=== PATIENT | male | born 1960 | race Caucasian/White ===

== ENCOUNTER 2019-02-14 12:28 | Emergency (ER) | payer MEDICAID ==
[~2019-02-14] VITALS: Ht 180.3 cm; Wt 65.9 kg
[~2019-02-14 12:28] MED LIST: CELEXA; NORCO 325 MG-7.1 TAB PO
[2019-02-14 12:29] VITALS: BP 145/85; TEMP 98.7
[2019-02-14] MEDS ORDERED: CLEOCIN HCL300 MG PO (13:40)
[2019-02-14 13:49] VITALS: PULSE 109
== END 2019-02-14 13:49 | disposition home or self-care (01) ==
LOC: COL.ER 12:28
DX: S01.512A Laceration without foreign body of oral cavity, initial encounter (principal); Y04.8XXA Assault by other bodily force, initial encounter; Z23 Encounter for immunization

== ENCOUNTER 2019-02-24 09:06 | Emergency (ER) | payer MEDICAID ==
[~2019-02-24] VITALS: Ht 177.8 cm; Wt 68.2 kg
[~2019-02-24 09:06] MED LIST changes: +CLEOCIN HCL300 MG PO
[2019-02-24 09:35] LABS: HEMOGLOBIN 12.3 g/dl (13.5-18.0); MEAN CELL VOLUME 102 fl (80.0-100.0); MEAN CORPUSCULAR HEMOGLOBIN 34 pg (27.0-31.0); MEAN CORPUSCULAR HGB CONC 34 g/dl (33.0-37.0); MEAN PLATELET VOLUME 8.5 fl (7.4-10.4); PLATELET COUNT 356 K/mm3 (130-400); REDCELL DISTRIBUTION WIDTH-CV 12.8 % (11.5-14.5)
[2019-02-24 09:50] LABS: ALANINE AMINOTRANSFERASE 49 U/L (21-72); ALBUMIN 3.8 gm/dL (3.5-5.0); ALCOHOL(ethanol),MEDICAL 295 mg/dL; ALKALINE PHOSPHATASE 80 U/L (50-136); ANION GAP 14 mmol/L (7-16); AST,SGOT 75 U/L (15-37); BILIRUBIN,TOTAL 0.4 mg/dL (0.0-1.0); BLOOD UREA NITROGEN 5 mg/dL (9-20); CALCIUM 8.4 mg/dL (8.4-10.2); CARBON DIOXIDE 23 mmol/L (22-30); CHLORIDE 101 mmol/L (98-107); CREATININE, serum 0.38 (0.66-1.25); GLUCOSE 92 mg/dL (74-106); POTASSIUM 4.5 mmol/L (3.4-5.0); SODIUM 137 mmol/L (137-145); TOTAL PROTEIN 7.5 gm/dL (6.4-8.2)
[2019-02-24 10:01] LABS: HEMATOCRIT 36.6 % (42.0-52.0)
[2019-02-24 10:07] LABS: TROPONIN-I < 0.012 ng/mL (0.000-0.035)
[2019-02-24 10:40] LABS: BAND 18 % (0-10); LYMPHOCYTE 5 % (20.0-51.0); NEUTROPHILS 75 % (42.0-75.2)
[2019-02-24 10:41] LABS: PLATELET ESTIMATE NORMAL (NORMAL)
[2019-02-24 11:20] LABS: COLLECTION METHOD CLEAN CATCH
[2019-02-24 11:30] LABS: MUCOUS Present /lpf; PH 7 (5-8); SQUAMOUS EPITHELIAL None Seen /hpf; URINE APPEARANCE Clear; URINE BACTERIA None Seen /hpf; URINE BILIRUBIN Negative (NEGATIVE); URINE BLOOD Negative (NEGATIVE); URINE COLOR Yellow; URINE GLUCOSE Negative (NEGATIVE); URINE KETONE Negative (NEGATIVE); URINE LEUKOCYTE ESTERASE Negative (NEGATIVE); URINE NITRATE Negative (NEGATIVE); URINE PROTEIN(semi-quant) Negative (NEGATIVE); URINE RBC 0-2 /hpf; URINE UROBILINOGEN Negative (NEGATIVE)
[2019-02-24 11:50] VITALS: BP 150/89; PULSE 118; TEMP 98.7
[2019-02-24 11:50] LABS: TRICYCLIC ANTIDEPRESS URINE NEGATIVE
--- NOTE | 2019-02-24 14:13 | NUR ---
MACI perez responded to a elementary school social worker referral for the patient. The patient was being tranferred to [place] and the receiving physician was inquiring about patient's plan to return to [place]. MACI student attempted to meet with the patient; patient refused and stated he was tired. ENTERPRISE APPLICATIONS MANAGER student contacted the patient's insurance carrier; CHELSEA [facility]. ENTERPRISE APPLICATIONS MANAGER student confirmed that the patient has transportation services and they can provide transport after discharge; CHELSEA reports the nurse or elementary school social worker at the [facility] will need to call to set up transport upon discharge. MACI student informed the patient's nurse, Deepthi and gave her the phone # ; Deepthi will pass on the information to the receiving nurse. There are no additional concerns at this time.
== END 2019-02-24 11:50 | disposition short-term general hospital (02) ==
LOC: COL.ER 09:06
PROVIDERS: Emergency Medicine
DX: F10.129 Alcohol abuse with intoxication, unspecified (principal); J69.0 Pneumonitis due to inhalation of food and vomit; A41.9 Sepsis, unspecified organism; R09.02 Hypoxemia; R41.82 Altered mental status, unspecified; S00.81XD Abrasion of other part of head, subsequent encounter; Y90.8 Blood alcohol level of 240 mg/100 ml or more; X58.XXXD Exposure to other specified factors, subsequent encounter
CPT/HCPCS: J2543; J3411; J7030

== ENCOUNTER → 2019-03-18 | Outpatient (CLI) | payer MEDICAID | LOC: COL.RAD 11:04 | DX: M47.816 Spondylosis without myelopathy or radiculopathy, lumbar region (principal); M25.561 Pain in right knee; M25.562 Pain in left knee ==

== ENCOUNTER → 2019-03-30 | Outpatient (CLI) | payer MEDICAID ==
[2019-03-30 17:20] LABS: HEMATOCRIT 39.6 % (42.0-52.0); MEAN CELL VOLUME 98 fl (80.0-100.0); MEAN CORPUSCULAR HEMOGLOBIN 32 pg (27.0-31.0); MEAN CORPUSCULAR HGB CONC 33 g/dl (33.0-37.0); MEAN PLATELET VOLUME 9.7 fl (7.4-10.4); PLATELET COUNT 242 K/mm3 (130-400); RED BLOOD COUNT 4.04 M/mm3 (4.20-5.60); REDCELL DISTRIBUTION WIDTH-CV 14.6 % (11.5-14.5)
[2019-03-30 21:44] LABS: BAND 1 % (0-10); EOSINOPHIL 2 % (0-4); LYMPHOCYTE 33 % (20.0-51.0); NEUTROPHILS 55 % (42.0-75.2)
[2019-03-30 21:45] LABS: PLATELET ESTIMATE NORMAL (NORMAL)
== END ==
LOC: ZCOL.LAB 16:26
PROVIDERS: Family Medicine
DX: K92.1 Melena (principal)

== ENCOUNTER 2020-01-18 17:46 | Emergency (ER) | payer MEDICAID ==
[~2020-01-18] VITALS: Ht 177.8 cm; Wt 68.2 kg
[2020-01-18 17:49] VITALS: TEMP 98.2
[2020-01-18 18:12] LABS: BILIRUBIN,TOTAL 0.4 mg/dL (0.0-1.0); CALCIUM 8.7 mg/dL (8.4-10.2); CREATININE, serum 0.37 (0.66-1.25); POTASSIUM 4.4 mmol/L (3.4-5.0); TOTAL PROTEIN 7.6 gm/dL (6.4-8.2)
[2020-01-18 18:18] LABS: COLLECTION METHOD CLEAN CATCH
[2020-01-18 18:18] LABS: BASO # 0.2 (0.0-0.2); BASO % 1.4 % (0.0-2.0); EOS # 0.1 (0.0-0.7); GRAN # 7.7 (1.4-6.5); GRAN % 71.6 % (42.2-75.2); HEMATOCRIT 37.9 % (42.0-52.0); HEMOGLOBIN 12.7 g/dl (13.5-18.0); LYMPH # 1.8 (1.2-3.4); MEAN CELL VOLUME 106 fl (80.0-100.0); MEAN CORPUSCULAR HEMOGLOBIN 36 pg (27.0-31.0); MEAN CORPUSCULAR HGB CONC 34 g/dl (33.0-37.0); MONO # 0.9 (0.1-0.6); MONO % 8.6 % (1.7-9.3); PLATELET COUNT 288 K/mm3 (130-400); RED BLOOD COUNT 3.58 M/mm3 (4.20-5.60); REDCELL DISTRIBUTION WIDTH-CV 13.1 % (11.5-14.5)
[2020-01-18 18:21] VITALS: BP 126/88; PULSE 93
[2020-01-18 18:26] LABS: PH 7 (5-8); SQUAMOUS EPITHELIAL None Seen /hpf; URINE APPEARANCE Clear; URINE BACTERIA None Seen /hpf; URINE BILIRUBIN Negative (NEGATIVE); URINE BLOOD Negative (NEGATIVE); URINE COLOR Straw; URINE GLUCOSE Negative (NEGATIVE); URINE KETONE Negative (NEGATIVE); URINE LEUKOCYTE ESTERASE Negative (NEGATIVE); URINE NITRATE Negative (NEGATIVE); URINE PROTEIN(semi-quant) Negative (NEGATIVE); URINE RBC None Seen /hpf; URINE UROBILINOGEN Negative (NEGATIVE)
[2020-01-18] MEDS ORDERED: CELEXA40 MG PO (18:37)
[2020-01-18 19:29] LABS: TRICYCLIC ANTIDEPRESS URINE NEGATIVE
== END 2020-01-18 18:21 | disposition left against medical advice (07) ==
LOC: COL.ER 17:46
PROVIDERS: Family Medicine
DX: S33.9XXA Sprain of unspecified parts of lumbar spine and pelvis, initial encounter (principal); W19.XXXA Unspecified fall, initial encounter
CPT/HCPCS: J1885; J7030

== ENCOUNTER 2020-03-15 15:37 | Emergency (ER) | payer MEDICAID ==
[~2020-03-15] VITALS: Ht 177.8 cm; Wt 68.2 kg
[~2020-03-15 15:37] MED LIST changes: +CELEXA40 MG PO
[2020-03-15 15:40] VITALS: TEMP 98.2
[2020-03-15 16:04] LABS: BASO # 0.1 (0.0-0.2); BASO % 1.5 % (0.0-2.0); EOS # 0.1 (0.0-0.7); EOS % 1.7 % (0-4.0); GRAN # 3.7 (1.4-6.5); GRAN % 47.9 % (42.2-75.2); HEMATOCRIT 41.8 % (42.0-52.0); HEMOGLOBIN 14.2 g/dl (13.5-18.0); LYMPH # 3.3 (1.2-3.4); LYMPH % 42.7 % (20.0-51.0); MEAN CELL VOLUME 97 fl (80.0-100.0); MEAN CORPUSCULAR HEMOGLOBIN 33 pg (27.0-31.0); MEAN CORPUSCULAR HGB CONC 34 g/dl (33.0-37.0); MEAN PLATELET VOLUME 9.1 fl (7.4-10.4); MONO # 0.5 (0.1-0.6); MONO % 5.8 % (1.7-9.3); PLATELET COUNT 367 K/mm3 (130-400); RED BLOOD COUNT 4.29 M/mm3 (4.20-5.60); REDCELL DISTRIBUTION WIDTH-CV 13.1 % (11.5-14.5)
[2020-03-15 16:12] LABS: ALANINE AMINOTRANSFERASE 41 U/L (4-49); ALBUMIN 4.1 gm/dL (3.5-5.0); ALKALINE PHOSPHATASE 81 U/L (50-136); ANION GAP 13 mmol/L (7-16); AST,SGOT 67 U/L (15-37); BILIRUBIN,TOTAL 0.3 mg/dL (0.0-1.0); BLOOD UREA NITROGEN 5 mg/dL (9-20); CALCIUM 8.8 mg/dL (8.4-10.2); CARBON DIOXIDE 24 mmol/L (22-30); CHLORIDE 106 mmol/L (98-107); CREATININE, serum 0.63 (0.66-1.25); GLUCOSE 102 mg/dL (74-106); SODIUM 143 mmol/L (137-145); TOTAL PROTEIN 7.9 gm/dL (6.4-8.2)
[2020-03-15 16:21] LABS: ALCOHOL(ethanol),MEDICAL 326 mg/dL
[2020-03-15 16:25] LABS: TROPONIN-I < 0.012 ng/mL (0.000-0.035)
[2020-03-15 17:32] VITALS: BP 124/95
[2020-03-15] MEDS ORDERED: ATARAX 25MG25 MG/TAB PO (19:17)
[2020-03-15 19:35] VITALS: PULSE 111
== END 2020-03-15 19:35 | disposition home or self-care (01) ==
LOC: COL.ER 15:37
PROVIDERS: Emergency Medicine
DX: F10.229 Alcohol dependence with intoxication, unspecified (principal); S00.81XA Abrasion of other part of head, initial encounter; S60.512A Abrasion of left hand, initial encounter; S80.212A Abrasion, left knee, initial encounter; S80.211A Abrasion, right knee, initial encounter; F41.9 Anxiety disorder, unspecified; F17.210 Nicotine dependence, cigarettes, uncomplicated; W19.XXXA Unspecified fall, initial encounter
CPT/HCPCS: J7030

== ENCOUNTER 2020-07-21 05:07 | Inpatient (IN) | payer MEDICAID ==
[~2020-07-21] VITALS: Ht 177.8 cm; Wt 61.3 kg
[~2020-07-21 05:07] MED LIST changes: +ATARAX 25MG25 MG/TAB PO
[2020-07-21 05:35] LABS: BASO # 0.1 (0.0-0.2); BASO % 1.3 % (0.0-2.0); EOS % 0.2 % (0-4.0); GRAN # 4.2 (1.4-6.5); GRAN % 67.7 % (42.2-75.2); HEMATOCRIT 38.3 % (42.0-52.0); HEMOGLOBIN 13.3 g/dl (13.5-18.0); LYMPH # 0.9 (1.2-3.4); LYMPH % 14.4 % (20.0-51.0); MEAN CELL VOLUME 97 fl (80.0-100.0); MEAN CORPUSCULAR HEMOGLOBIN 34 pg (27.0-31.0); MEAN CORPUSCULAR HGB CONC 35 g/dl (33.0-37.0); MEAN PLATELET VOLUME 9.3 fl (7.4-10.4); MONO % 15.7 % (1.7-9.3); PLATELET COUNT 154 K/mm3 (130-400); RED BLOOD COUNT 3.95 M/mm3 (4.20-5.60); REDCELL DISTRIBUTION WIDTH-CV 14.5 % (11.5-14.5)
[2020-07-21 05:49] LABS: ALANINE AMINOTRANSFERASE 78 U/L (4-49); ALBUMIN 4.8 gm/dL (3.5-5.0); ALCOHOL(ethanol),MEDICAL 19 mg/dL; ALKALINE PHOSPHATASE 103 U/L (50-136); ANION GAP 18 mmol/L (7-16); AST,SGOT 194 U/L (15-37); BLOOD UREA NITROGEN 4 mg/dL (9-20); CALCIUM 9.6 mg/dL (8.4-10.2); CARBON DIOXIDE 19 mmol/L (22-30); CHLORIDE 100 mmol/L (98-107); CREATINE KINASE 170 U/L (55-170); CREATININE, serum 0.47 (0.66-1.25); GLUCOSE 80 mg/dL (74-106); LACTATE DEHYDROGENASE 850 U/L (313-618); LIPASE 1072 U/L (23-300); POTASSIUM 4.1 mmol/L (3.4-5.0); SODIUM 137 mmol/L (137-145); TOTAL PROTEIN 8.8 gm/dL (6.4-8.2)
[2020-07-21 05:55] LABS: C-REACTIVE PROTEIN < 0.5 mg/dL (0.0-0.9)
[2020-07-21 06:01] LABS: TROPONIN-I < 0.012 ng/mL (0.000-0.035)
[2020-07-21 06:21] LABS: ERYTHROCYTE SEDIMENTATION RATE 22 mm/hr (0-30)
[2020-07-21 09:37] LABS: COLLECTION METHOD CLEAN CATCH
--- NOTE | 2020-07-21 09:41 | NUR ---
SW consulted for patient safety concern. Sw met with patient about care. Patient reports that he has been having trouble walking for the last few weeks. Patient reports that he resides by himself locally. Patient indicated that he can not care for himself a he does not know what is wrong and why he cannot walk. Patient shares that he is on Citalopram 40 MGs at home. Client reports that he has been drinking and taking the medications with the alcohol at times. Patient reports that is on Social Security for his income. Patient reports that he has family in [facility] and a brother Alberto Downs who reach lift truck driver be reached at . Must press (1) to confirm that you are not a darkroom worker. Patient reports concerns with bowls. Patient is not safe to return home. Patient concern with fixed income and is slightly agitated. Will continue to follow care for supports. It is possible that the patient is etoh. Will monitor to offer resources and supports. Awaiting lab results.
[2020-07-21 09:54] LABS: PH 7 (5-8); SQUAMOUS EPITHELIAL None Seen /hpf; URINE APPEARANCE Clear; URINE BACTERIA None Seen /hpf; URINE BILIRUBIN Negative (NEGATIVE); URINE BLOOD Negative (NEGATIVE); URINE COLOR Yellow; URINE GLUCOSE Negative (NEGATIVE); URINE KETONE 1+ (NEGATIVE); URINE LEUKOCYTE ESTERASE Negative (NEGATIVE); URINE NITRATE Negative (NEGATIVE); URINE PROTEIN(semi-quant) Negative (NEGATIVE); URINE RBC 0-2 /hpf; URINE UROBILINOGEN >=4.0 mg/dL (NEGATIVE); URINE WBC 0-2 /hpf
[2020-07-21] MEDS ORDERED: PROVENTIL0.09 MG/A1 IH (10:55)
[2020-07-21] MEDS ORDERED: RT ADVAIR 228 DISKUS IH (10:56)
[2020-07-21] MEDS ORDERED: CELEXA 20MG20 MG/TAB PO (10:57)
--- NOTE | 2020-07-21 11:26 | NUR ---
PT ARRIVED TO FLOOR, IRRITABLE, TREMORS VISIBLE, AOX3, WEARING BRIEF BUT INC DUE TO URGENCY. BED ALARM ON IN ROOM, EDUCATED HIM GAS LINE SERVICER LIGHT.
[2020-07-21 11:27] VITALS: BP 160/94; PULSE 80; TEMP 98.3
--- NOTE | 2020-07-21 11:52 | NUR ---
PHARMACY CALLED FOR MED REC
[2020-07-21 12:57] LABS: PROTHROMBIN TIME 11.6 SECONDS (9.7-12.8)
[2020-07-21 13:00] LABS: PARTIAL THROMBOPLASTIN TIME 33.8 SECONDS (26.0-37.0)
[2020-07-21 14:42] VITALS: BP 149/89; PULSE 91; TEMP 98.4
[2020-07-21 16:25] VITALS: BP 158/94; PULSE 87; TEMP 98.1
--- NOTE | 2020-07-21 17:04 | NUR ---
PT AOX4, IN BED, IMPULSIVE WHEN NEEDING TO URINATE, BED ALARM SET, PT SLEEPING IN ROOM, SCORING 5-6 ON CWAW SCALE, NO OTHER NEEDS.
[2020-07-21 18:09] VITALS: BP 150/81; PULSE 89; TEMP 98.5
[2020-07-21 20:34] VITALS: BP 155/80; PULSE 89; TEMP 98.2
--- NOTE | 2020-07-21 23:32 | NUR ---
PATIENT WAS RECEIVED FAIR IN BED ,DUE MEDS GIVEN,ASSESSMENT DONE,CIWA SCORE WAS 4 GAVE ARTIVAN 0.5MG.DENIES PAIN NO NEEDS AT THIS TIME
[2020-07-21 23:59] VITALS: BP 142/80; PULSE 91; TEMP 98.4
[2020-07-22] VITALS (365 sets, daily range): BP systolic 102–171; BP diastolic 55–110; PULSE 78–143; TEMP 97.2–99; O2SAT 57–100
[2020-07-22 00:32] LABS: TRICYCLIC ANTIDEPRESS URINE NEGATIVE
--- NOTE | 2020-07-22 02:40 | NUR ---
PATIENT REPORTED OF BACK PAINS NIGHT HOSPITALIST INFORMED,ORDERED MOTRIN PO,SAME GIVEN.
--- NOTE | 2020-07-22 06:03 | NUR ---
PATIENT IS ON CIWA PROTOCOL,AT NIGHT THE SCORE RANGED FROM 4-9.MEDS GIVEN PER MAR.NO CONCERNS AT THIS TIME.
[2020-07-22 08:06] LABS: HEMATOCRIT 40.4 % (42.0-52.0); HEMOGLOBIN 13.9 g/dl (13.5-18.0); MEAN CELL VOLUME 96 fl (80.0-100.0); MEAN CORPUSCULAR HEMOGLOBIN 33 pg (27.0-31.0); MEAN CORPUSCULAR HGB CONC 34 g/dl (33.0-37.0); PLATELET COUNT 143 K/mm3 (130-400); RED BLOOD COUNT 4.19 M/mm3 (4.20-5.60); REDCELL DISTRIBUTION WIDTH-CV 14.4 % (11.5-14.5)
[2020-07-22 08:08] LABS: ALBUMIN 4.6 gm/dL (3.5-5.0); BILIRUBIN,TOTAL 1.5 mg/dL (0.0-1.0); CALCIUM 9.9 mg/dL (8.4-10.2); CREATININE, serum 0.52 (0.66-1.25); POTASSIUM 3.7 mmol/L (3.4-5.0); TOTAL PROTEIN 8.5 gm/dL (6.4-8.2)
--- NOTE | 2020-07-22 10:31 | NUR ---
PT VERY AGITATED, PULLING TELE OFF, TRYING TO GET OUT OF BED REPEATEDLY, TACHYCARDIC, MULITPLE CALLS FROM TELE ABOUT INC HR, DR. BUCK AWARE, BP ELEVATED GAVE HYDRALAZINE EARLY AFTER ASKING PHYSICIAN, VALIUM ADDED ON TO ORDER AND GIVEN. EXTRA 2MG ATIVAN ORDERED ON TOP OF Q2H DOSING. SITTER ORDER PLACED, PT HALLUCINATING IN ROOM, THINKING CLOSET IS AN EXTRA BEDROOM AND THAT WE ARE MOVING FURNITURE AROUND TO FRUSTRATE HIM. PT NOT CALMING WITH ATIVAN.
--- NOTE | 2020-07-22 11:15 | NUR ---
ATTEMPTING TO PUT TELE ON PT MULTIPLE TIMES, PT GETTING AGITATED AND GRABBING STAFF.
--- NOTE | 2020-07-22 11:23 | NUR ---
PT NOW THREATENING TO PUNCH STAFF WHEN ATTEMPTING TO PLACE TELEMETRY. PHYSICIANS AWARE, TRYING TO SLIDE OUT OF BED CONSTANTLY DESPITE MEDICATIONS GIVEN.
--- NOTE | 2020-07-22 15:10 | NUR ---
REPORT GIVEN TO TOM IN ICU, PT TAKEN DOWN WITH CHART AND OTHER BELONGINGS.
[2020-07-23] VITALS (801 sets, daily range): BP systolic 89–136; BP diastolic 71–106; PULSE 77–120; TEMP 97.7–99.2; O2SAT 63–100
[2020-07-23 06:00] LABS: BASO % 0.5 % (0.0-2.0); EOS % 0.4 % (0-4.0); GRAN # 5.7 (1.4-6.5); GRAN % 74.9 % (42.2-75.2); HEMATOCRIT 39.9 % (42.0-52.0); HEMOGLOBIN 13.3 g/dl (13.5-18.0); MEAN CELL VOLUME 100 fl (80.0-100.0); MEAN CORPUSCULAR HEMOGLOBIN 33 pg (27.0-31.0); MEAN CORPUSCULAR HGB CONC 33 g/dl (33.0-37.0); MEAN PLATELET VOLUME 10.6 fl (7.4-10.4); MONO # 0.8 (0.1-0.6); MONO % 10.2 % (1.7-9.3); PLATELET COUNT 120 K/mm3 (130-400); RED BLOOD COUNT 4.01 M/mm3 (4.20-5.60); REDCELL DISTRIBUTION WIDTH-CV 14.6 % (11.5-14.5)
[2020-07-23 06:10] LABS: ALBUMIN 4.2 gm/dL (3.5-5.0); BILIRUBIN,TOTAL 1.6 mg/dL (0.0-1.0); CALCIUM 9.6 mg/dL (8.4-10.2); CREATININE, serum 0.6 (0.66-1.25); MAGNESIUM 2.3 mg/dL (1.6-2.3); POTASSIUM 3.3 mmol/L (3.4-5.0); TOTAL PROTEIN 7.8 gm/dL (6.4-8.2)
--- NOTE | 2020-07-23 07:45 | NUR ---
Report received from Alejandro BERG
--- NOTE | 2020-07-23 08:00 | NUR ---
Nicotine patch removed from left shoulder, and new patch replaced on right shoulder. Date and this nurse initials on it.
--- NOTE | 2020-07-23 11:00 | NUR ---
Pt having increased agitation. Yelling and cussing at nursing staff. Pt is in need of 1:1 care for this time being. Request a sitter. Pt is more quiet when this nurse is sitting behind him, out of sight although due to sitting on the left side of the bed, bed alarm is not an option. Pt also, repeatedly, attempting to get out of bed. Tremors noted to upper and lower extremities with movements. Pt is observed holding beverages (juice/ water) that has been provided to him although has been repeatedly dropping the cups in bed. After verbal outburst that lasted approximately 15 minutes, pt would only demonstrated aggitation when nursing staff continued to encourage pt to stay in bed, standing at bedside. Pt repeatedly makes comments consistent with hallucinations as well as noted to be reaching for something at the end of the bed. Pt also has been saying "get out of my house", "get my a drink", "I want a beer".
--- NOTE | 2020-07-23 13:05 | NUR ---
Brother Yves called with concern noted that pt was in the ICU. After verification brother was only notified that pt was in the unit for extra care and medication to assist in the detox process.
--- NOTE | 2020-07-23 19:14 | NUR ---
Report provided to Natasha BERG.
--- NOTE | 2020-07-23 20:29 | NUR ---
PT RESTING INBED DENIES PAIN AT THIS TIME. VSS, AND DENIES DOA. REMAINS A/O X 2. PT REMAINS ON CIWA PROTOCOL AND SZ PRECAUTIONS. PT REMAINS ON PRECEDEX GTT FOR SEVERE ANXIETY. WILL CONTINUE TO MONITOR PT STATUS AND UPDATE PROVIDERS NEEDED.
[2020-07-24] VITALS (927 sets, daily range): BP systolic 112–142; BP diastolic 82–101; PULSE 89–113; TEMP 98.4–99.2; O2SAT 73–100
[2020-07-24 06:07] LABS: BASO # 0.1 (0.0-0.2); BASO % 0.5 % (0.0-2.0); EOS % 0.4 % (0-4.0); GRAN # 7.1 (1.4-6.5); GRAN % 76.8 % (42.2-75.2); HEMATOCRIT 37.1 % (42.0-52.0); HEMOGLOBIN 12.7 g/dl (13.5-18.0); LYMPH # 0.9 (1.2-3.4); LYMPH % 9.5 % (20.0-51.0); MEAN CELL VOLUME 98 fl (80.0-100.0); MEAN CORPUSCULAR HEMOGLOBIN 34 pg (27.0-31.0); MEAN CORPUSCULAR HGB CONC 34 g/dl (33.0-37.0); MEAN PLATELET VOLUME 10.9 fl (7.4-10.4); MONO # 1.1 (0.1-0.6); MONO % 12.2 % (1.7-9.3); PLATELET COUNT 105 K/mm3 (130-400); RED BLOOD COUNT 3.78 M/mm3 (4.20-5.60); REDCELL DISTRIBUTION WIDTH-CV 14.6 % (11.5-14.5)
[2020-07-24 06:19] LABS: INR 1.2 (0.8-3.0); PROTHROMBIN TIME 13.9 SECONDS (9.7-12.8)
[2020-07-24 06:21] LABS: ALBUMIN 3.9 gm/dL (3.5-5.0); BILIRUBIN,TOTAL 1.6 mg/dL (0.0-1.0); CALCIUM 9.1 mg/dL (8.4-10.2); CREATININE, serum 0.57 (0.66-1.25); MAGNESIUM 2.2 mg/dL (1.6-2.3); TOTAL PROTEIN 7.6 gm/dL (6.4-8.2)
--- NOTE | 2020-07-24 10:38 | NUR ---
ANU contacted the number on file for the patient's brother. The patient's mother, Elen, answered the phone. Elen reports that this is her and her 's (the patient's father's phone number). Elen confirms that the patient is not marriend and does not have any children. The patient's next of kin is his parents: Elen and Alberto Brown (ph#[phone], press 8). ANU informed Elen of this. ANU to continue to follow.
[2020-07-25] VITALS (825 sets, daily range): BP systolic 113–144; BP diastolic 67–102; PULSE 80–135; TEMP 98–98.3; O2SAT 89–100
--- NOTE | 2020-07-25 01:23 | NUR ---
Patient attempting to get out of bed; becoming verbally aggressive and yelling "I need my fucking beer!" Attempting to kick staff when attempting to assist legs back into bed. Attempted to re-orient patient which was not effective. Hospitalist called and received an additional order order of Ativan and will administer haldol.
--- NOTE | 2020-07-25 02:26 | NUR ---
Despite Ativan and Haldol patient continues to attempt to get out of bed continuously; swings legs over the side rails and attempts to push off, although too weak to push himself up out of the bed. Staff unable to leave patient's bedside at this time for his safety. HR up to the 140's in sinus tach. Precedex will be re-initiate at this time.
[2020-07-25 02:52] LABS: CLOSTRIDIUM DIFF A/B NEG; CLOSTRIDIUM DIFF A/B INTERP No C.diff present
--- NOTE | 2020-07-25 05:27 | NUR ---
Resting quietly in bed; tolerating precedex well.
[2020-07-25 05:48] LABS: HEMOGLOBIN 12.2 g/dl (13.5-18.0); MEAN CELL VOLUME 100 fl (80.0-100.0); MEAN CORPUSCULAR HEMOGLOBIN 34 pg (27.0-31.0); MEAN CORPUSCULAR HGB CONC 34 g/dl (33.0-37.0); MEAN PLATELET VOLUME 10.9 fl (7.4-10.4); PLATELET COUNT 125 K/mm3 (130-400); RED BLOOD COUNT 3.58 M/mm3 (4.20-5.60); REDCELL DISTRIBUTION WIDTH-CV 14.6 % (11.5-14.5)
[2020-07-25 05:53] LABS: HEMATOCRIT 35.8 % (42.0-52.0)
[2020-07-25 06:01] LABS: CALCIUM 8.9 mg/dL (8.4-10.2); CREATININE, serum 0.45 (0.66-1.25); MAGNESIUM 2.2 mg/dL (1.6-2.3)
[2020-07-25 06:04] LABS: POTASSIUM 2.9 mmol/L (3.4-5.0)
[2020-07-25 06:30] LABS: BAND 2 % (0-10); BASOPHIL 1 % (0-2); LYMPHOCYTE 7 % (20.0-51.0); NEUTROPHILS 71 % (42.0-75.2)
[2020-07-25 06:31] LABS: PLATELET ESTIMATE DECREASED (NORMAL)
--- NOTE | 2020-07-25 09:46 | NUR ---
Assessment completed, drowsy/ lethargic at this time, weening down his Precedex gtt, vital signs are stable, does not appear to be in any acute pain/discomfort/distress, he arouses to light touch but falls back asleep quickly, heart RRR/distal pulses are palapble, lungs CTA/ diminished bases, no resp.difficulty and on room air, bed alarm is set and we are hoping to get transfeered out of ICU today
--- NOTE | 2020-07-25 10:45 | NUR ---
Patient is beggining to get more agitated
--- NOTE | 2020-07-25 12:14 | NUR ---
Assessment completed, patient is much more agitated sence we had been trying to ween him down on his Precedex gtt/ he was getting combative and extremely agitated, he bace hypertensive and tachycardic at that time as well, I haave titrated his Precedex gtt back up to 0.4 mcg/kg/hr and gave him Ativan and Haldol IV, he is still worked up but is starting to calm down again and is currently no longer combative/ he beleives he is in his hotel room does not think hes in a hospital, will discuss care with and will continue to monitor closely
--- NOTE | 2020-07-25 16:39 | NUR ---
patient now to the point of getting combative, titrating Precedex back up notified physician, 1:1 in the room with his currently
--- NOTE | 2020-07-25 16:48 | NUR ---
Patient had a fall at 1600, he had been sleeping prior to this, Unit superviosr and charge nurse both present on floor at time of the fall, bed alarm was set but did not go off, vital signs stable, patient had slid off bed to his butt with no obvious injuries, also in the ICU at this time and is notified, no new orders or tests ordered, patient helped back into bed after using BSC and bed alarm set and checked for proper function
--- NOTE | 2020-07-25 19:15 | NUR ---
Report given to MORENA Gonzalez
--- NOTE | 2020-07-25 20:00 | NUR ---
Patient alert and mildly restless; patient turned partially sideways in bed and tangled in sheets. Stated " I need to get out of this bed". Reminded patient that he is very weak and he can get up to use the bathroom but at this time he is not strong enough to be walking any distances. Assisted with repositioning and bed bath. Shower cap provided and patient stated "that feels nice" and was able to rest after the bedbath.
[2020-07-26] VITALS (458 sets, daily range): BP systolic 116–153; BP diastolic 72–108; PULSE 83–125; TEMP 98.3–98.7; O2SAT 88–98
--- NOTE | 2020-07-26 00:57 | NUR ---
Patient has refused all offers for fluids. Has only had enought to swallow pills. Has had no output yet this shift. This nurse has asked patient mulitple times if he needs to urinate. Patient states "not yet". Attempted to hold the urinal in place to assist but did not void. Patient is not on fluids and mucous membranes are dry. Hospitalist notified and will initiate fluids.
[2020-07-26 05:24] LABS: MEAN CELL VOLUME 102 fl (80.0-100.0); MEAN CORPUSCULAR HEMOGLOBIN 34 pg (27.0-31.0); MEAN CORPUSCULAR HGB CONC 33 g/dl (33.0-37.0); MEAN PLATELET VOLUME 10.1 fl (7.4-10.4); PLATELET COUNT 172 K/mm3 (130-400); RED BLOOD COUNT 3.27 M/mm3 (4.20-5.60); REDCELL DISTRIBUTION WIDTH-CV 14.5 % (11.5-14.5)
[2020-07-26 05:25] LABS: HEMATOCRIT 33.2 % (42.0-52.0)
[2020-07-26 05:38] LABS: CREATININE, serum 0.47 (0.66-1.25); POTASSIUM 3.7 mmol/L (3.4-5.0)
[2020-07-26 06:04] LABS: BAND 2 % (0-10); EOSINOPHIL 1 % (0-4); HYPOCHROMIA 2+; LYMPHOCYTE 4 % (20.0-51.0); NEUTROPHILS 85 % (42.0-75.2); PLATELET ESTIMATE NORMAL (NORMAL)
--- NOTE | 2020-07-26 19:27 | NUR ---
Report given to MORENA Valencia.
--- NOTE | 2020-07-26 20:00 | NUR ---
Assessment complete. Pt is alert and responsive to voice but is confused. Breathing is even and unlabored on room air. RA IV and LW IV are both free of complications. [place] catheter to DD is free of complications. Pt is resting quietly in the bed at this time and he denies further needs. Call light within reach.
[2020-07-27] VITALS (497 sets, daily range): BP systolic 119–160; BP diastolic 77–113; PULSE 85–127; TEMP 98–98.6; O2SAT 76–100
--- NOTE | 2020-07-27 09:40 | NUR ---
Initial visit; Patient appears able to hear though doesn't respond. Farm Technician offered God's blessings.
--- NOTE | 2020-07-27 19:00 | NUR ---
PATIENT WAS RECEIVED FAIR DUE MEDS GIVEN,ASSESSMENT DONE.PATIENT HAS POOR ORAL INTAKE.NO NEEDS AT THIS TIME.
[2020-07-28] VITALS (10 sets, daily range): BP systolic 119–197; BP diastolic 8–112; PULSE 85–116; TEMP 97.4–98.8
--- NOTE | 2020-07-28 05:53 | NUR ---
PATIENT IS CALM NOW HAS RECEIVED CIWA MEDS PER AUG.AT NIGHT HE WAS SCORING 10 WHEN AWAKE AND 4 WHEN ASLEEP.PATIENT HAS REDUCED ORAL INTAKE.DENIES PAIN.NO OTHER NEEDS AT THIS TIME.
[2020-07-28 07:11] LABS: HEMOGLOBIN 10.8 g/dl (13.5-18.0); MEAN CELL VOLUME 102 fl (80.0-100.0); MEAN CORPUSCULAR HEMOGLOBIN 34 pg (27.0-31.0); MEAN CORPUSCULAR HGB CONC 33 g/dl (33.0-37.0); MEAN PLATELET VOLUME 10.5 fl (7.4-10.4); REDCELL DISTRIBUTION WIDTH-CV 14.5 % (11.5-14.5)
[2020-07-28 07:22] LABS: ALBUMIN 3.5 gm/dL (3.5-5.0); BILIRUBIN,TOTAL 1.1 mg/dL (0.0-1.0); CALCIUM 9.4 mg/dL (8.4-10.2); CREATININE, serum 0.44 (0.66-1.25); POTASSIUM 3.2 mmol/L (3.4-5.0); TOTAL PROTEIN 7.1 gm/dL (6.4-8.2)
[2020-07-28 07:29] LABS: HEMATOCRIT 32.5 % (42.0-52.0); PLATELET COUNT 360 K/mm3 (130-400)
--- NOTE | 2020-07-28 07:33 | NUR ---
PT IS AGITATED, MOVED PT WITH X2 ASSISTANCE TO CHAIR. PT IS VERY CONCERNED ABOUT HIS MAIL. DISCUSSED THAT WE WOULD TALK TO SW ABOUT GETTING IN CONTACT WITH WARREN WHO IS THE PERSON HE GAVE HIS MAIL BERKOWITZ TO. PT IS ALSO REQUESTING A BEER, AND TO "GET THE FUCK OUT OF THIS PLACE." PT HAS PULLED HIS TELEMETRY LEADS OFF, WILL CONTINUE TO ATTEMPT TO GET THEM BACK ON. NO FURTHER CONCERNS AT THIS TIME.
[2020-07-28 09:03] LABS: BAND 5 % (0-10); LYMPHOCYTE 13 % (20.0-51.0); NEUTROPHILS 64 % (42.0-75.2); PLATELET ESTIMATE NORMAL (NORMAL)
--- NOTE | 2020-07-28 10:37 | NUR ---
PT IS LAYING IN BED AT THIS TIME. C/O GENERALIZED BODY ACHES. NO OTHER CONCERNS. TALKED WITH PATIENT'S MOTHER AND FATHER WHO ARE VERY SUPPORTIVE. NO FURTHER CONCERNS.
--- NOTE | 2020-07-28 16:45 | NUR ---
Automatic Line Set Up Mechanic gave referrals to [facility], [facility], and [facility] as placement is currently recommended for patient.
--- NOTE | 2020-07-28 17:00 | NUR ---
Lydia at [facility] advised they did not feel they could take patient at this time but would be willing to reevaluate once patient is more stable.
--- NOTE | 2020-07-28 20:00 | NUR ---
Patient is sleeping calmly in bed at this time. He shows no signs of tremors, is afebrile and HR is in the 90's. Lungs are clear, HR is regular rhythm and no edema is present. Patient does not appear to be in pain. When this RN wakes patient up, he becomes alert/drowsy but is only oriented to self and place. Bed alarm on, call light in reach.
[2020-07-29] VITALS (12 sets, daily range): BP systolic 112–158; BP diastolic 74–96; PULSE 59–126; TEMP 97.5–98.8
--- NOTE | 2020-07-29 02:04 | NUR ---
PATIENT SCORES 6 ON CIWA SCALE AT THIS TIME; 1 MG ATIVAN ADMINISTERED PER PROTOCOL.
[2020-07-29 09:01] LABS: BASO # 0.1 (0.0-0.2); BASO % 1.2 % (0.0-2.0); EOS # 0.1 (0.0-0.7); EOS % 1.3 % (0-4.0); GRAN # 5.7 (1.4-6.5); GRAN % 64.3 % (42.2-75.2); HEMOGLOBIN 12.1 g/dl (13.5-18.0); LYMPH # 1.4 (1.2-3.4); LYMPH % 15.2 % (20.0-51.0); MEAN CELL VOLUME 101 fl (80.0-100.0); MEAN CORPUSCULAR HEMOGLOBIN 33 pg (27.0-31.0); MEAN CORPUSCULAR HGB CONC 33 g/dl (33.0-37.0); MEAN PLATELET VOLUME 10.4 fl (7.4-10.4); MONO # 1.5 (0.1-0.6); MONO % 16.8 % (1.7-9.3); RED BLOOD COUNT 3.65 M/mm3 (4.20-5.60); REDCELL DISTRIBUTION WIDTH-CV 14.2 % (11.5-14.5)
[2020-07-29 09:07] LABS: HEMATOCRIT 36.8 % (42.0-52.0); PLATELET COUNT 499 K/mm3 (130-400)
[2020-07-29 09:28] LABS: ALBUMIN 3.9 gm/dL (3.5-5.0); CALCIUM 9.9 mg/dL (8.4-10.2); CREATININE, serum 0.46 (0.66-1.25); POTASSIUM 3.9 mmol/L (3.4-5.0); TOTAL PROTEIN 7.9 gm/dL (6.4-8.2)
--- NOTE | 2020-07-29 10:23 | NUR ---
Pt awake and alert upon entry to room, talkative and appropriate. No C/O pain at this time. Shift assessments complete, left Pt call light inreach, bed in lowest position, alarm on.
--- NOTE | 2020-07-29 19:30 | NUR ---
PT IS LAYING IN BED AT THIS TIME. COMPLIANT AND CORDIAL, DENIES ANY NEED AT THIS TIME. ASSESSMENT COMPLETED. NO OTHER CONCERNS AT THIS TIME.
[2020-07-30] VITALS (12 sets, daily range): BP systolic 98–133; BP diastolic 75–98; PULSE 83–116; TEMP 97.4–98.4
[2020-07-30 07:01] LABS: HEMOGLOBIN 11.6 g/dl (13.5-18.0); MEAN CELL VOLUME 102 fl (80.0-100.0); MEAN CORPUSCULAR HEMOGLOBIN 34 pg (27.0-31.0); MEAN CORPUSCULAR HGB CONC 33 g/dl (33.0-37.0); MEAN PLATELET VOLUME 10.3 fl (7.4-10.4); PLATELET COUNT 556 K/mm3 (130-400); RED BLOOD COUNT 3.45 M/mm3 (4.20-5.60); REDCELL DISTRIBUTION WIDTH-CV 14.5 % (11.5-14.5)
[2020-07-30 07:06] LABS: HEMATOCRIT 35.2 % (42.0-52.0)
[2020-07-30 07:08] LABS: CALCIUM 9.7 mg/dL (8.4-10.2); CREATININE, serum 0.47 (0.66-1.25); POTASSIUM 4.1 mmol/L (3.4-5.0)
[2020-07-30 07:34] LABS: BAND 1 % (0-10); BASOPHIL 1 % (0-2); EOSINOPHIL 2 % (0-4); LYMPHOCYTE 16 % (20.0-51.0); METAMYELOCYTE 1 % (0-0); NEUTROPHILS 58 % (42.0-75.2); PLATELET ESTIMATE INCREASED (NORMAL)
--- NOTE | 2020-07-30 08:02 | NUR ---
PT REFUSED TX
--- NOTE | 2020-07-30 08:51 | NUR ---
Pt awake and alert this morning upon entry, assisted to restroom. No C/O pain at this time. Shift assessment complete, left Pt call light in reach, sitting in recliner, alarm on.
--- NOTE | 2020-07-30 10:27 | NUR ---
SW faxed record updates to [facility] per their request (F# [id number]). IPR will review Friday. WSB will review information when patient is more stable.
--- NOTE | 2020-07-30 20:59 | NUR ---
[place] chair alarm beelping, when this RN run into Patient's room, noticed patient was sitting up on the floor by the chair at 20:39 pm. Patient states he was trying to turn off room light and he fell. Patient alert and oriented x3. Denies hurt his head. No bleeding, or skin open areas noted anywhere at this time. Denies paint or discomfort. Assisted patient to the bed. Called housekeeping assistant and reported this incident. Checked VS. VS stable. Educated patient regarding using of call light to call for help. Patient verbalized understanding. Scheduled meds given per AUG. Turned off room light per patient request. Patient laying in bed and resting at this time. Denies pain or discomfort. Call light within reach. Will continue to monitor for any changes.
[2020-07-31] VITALS (12 sets, daily range): BP systolic 92–137; BP diastolic 62–92; PULSE 80–109; TEMP 97.5–98.4
--- NOTE | 2020-07-31 02:54 | NUR ---
Patient slept for about 2 hours and woke up around midnight. Patient reports seeing brown horse in the room and trying to get the horse. Patient getting up frequently and trying to walk out of the room. Patient appears more agitated after a while. Patient keeps getting up and trying to walk out of the room. Called PRESTON Naqvi and reported patient's condition. PRN Ativan given at 02:32 am. Used wheelchair to escort patient downstairs to get head CT done per order. Call light within reach. Bed alarm/chair alarm on. Will continue to monitor.
[2020-07-31 06:39] LABS: HEMOGLOBIN 11.2 g/dl (13.5-18.0); MEAN CELL VOLUME 102 fl (80.0-100.0); MEAN CORPUSCULAR HEMOGLOBIN 33 pg (27.0-31.0); MEAN CORPUSCULAR HGB CONC 32 g/dl (33.0-37.0); MEAN PLATELET VOLUME 10.2 fl (7.4-10.4); PLATELET COUNT 599 K/mm3 (130-400); REDCELL DISTRIBUTION WIDTH-CV 14.2 % (11.5-14.5)
[2020-07-31 06:51] LABS: HEMATOCRIT 34.7 % (42.0-52.0)
[2020-07-31 06:52] LABS: CALCIUM 9.7 mg/dL (8.4-10.2); CREATININE, serum 0.61 (0.66-1.25)
--- NOTE | 2020-07-31 07:00 | NUR ---
Report received from MORENA Ga. Pt in bed sleeping, bed alarm on, will continue to monitor.
[2020-07-31 07:42] LABS: BAND 2 % (0-10); EOSINOPHIL 4 % (0-4); LYMPHOCYTE 30 % (20.0-51.0); METAMYELOCYTE 3 % (0-0); NEUTROPHILS 50 % (42.0-75.2); PLATELET ESTIMATE INCREASED (NORMAL)
--- NOTE | 2020-07-31 08:55 | NUR ---
Walked out of med room and alarm on in this room. upon entry found pt sitting on floor in bathroom. Pt very agitated with me assisting him to toilet, very disoriented. Sat on toilet for about 20 minutes and assisted bck to chair, left room to heat up breakfast again, and pt set off chair alarm before i could return, pt now in bed eating breakfast. Unable to orient to place. INT to RFA. bed alarm on will continue to monitor.
--- NOTE | 2020-07-31 11:36 | NUR ---
Update provided to mother, Elen.
--- NOTE | 2020-07-31 12:43 | NUR ---
Pt setting off bed alarm again, did want to go to the bathroom but was already incontinent in breif, pants and on bed. Will continue to monitor.
--- NOTE | 2020-07-31 16:41 | NUR ---
Accounting Administrator contacted patient's mother, Elen to discuss discharge plan. Elen agrees that patient needs post acute rehab and ANU updated Elen on referrals that were sent out. Elen advised if patient would be accepted at [facility], they could provide transportation. Elen stated that she would prefer [facility] in [place] as her other son is a speech therapist there. ANU contacted Cindy at [facility] and faxed updates. ANU also advised Cindy that patient's family member is a ST at their facility. ANU will continue to follow.
--- NOTE | 2020-07-31 18:01 | NUR ---
Early afternoon pt called me into room to apologize for acting rude to the staff this am. PT resting in bed currently with eyes closed. Will give bedside shift report to nightshift nurse who will resume care.
--- NOTE | 2020-07-31 20:00 | NUR ---
Bedside shift report received from MORENA Bland. At time of assessment, patient is sitting cross-legged in bed; He is alert and answers orientation questions correctly, however, some of his conversation is irrelevant. Lungs are clear and heart sounds are regular with a normal rate. No edema is present; He does complain of pain in his coccyx. He is breathing well on RA. He has a mild tremor in his hands. No new concerns; bed alarm set and call light in reach.
[2020-08-01] VITALS (11 sets, daily range): BP systolic 105–153; BP diastolic 63–92; PULSE 85–117; TEMP 97.5–98.8
[2020-08-01 07:20] LABS: MEAN CELL VOLUME 103 fl (80.0-100.0); MEAN CORPUSCULAR HEMOGLOBIN 33 pg (27.0-31.0); MEAN CORPUSCULAR HGB CONC 32 g/dl (33.0-37.0); MEAN PLATELET VOLUME 10.2 fl (7.4-10.4); PLATELET COUNT 615 K/mm3 (130-400); RED BLOOD COUNT 3.36 M/mm3 (4.20-5.60); REDCELL DISTRIBUTION WIDTH-CV 14.3 % (11.5-14.5)
[2020-08-01 07:23] LABS: HEMATOCRIT 34.5 % (42.0-52.0)
[2020-08-01 07:32] LABS: ALBUMIN 3.7 gm/dL (3.5-5.0); BILIRUBIN,TOTAL 0.5 mg/dL (0.0-1.0); CALCIUM 9.3 mg/dL (8.4-10.2); CREATININE, serum 0.58 (0.66-1.25); TOTAL PROTEIN 7.4 gm/dL (6.4-8.2)
[2020-08-01 07:49] LABS: BAND 5 % (0-10); EOSINOPHIL 3 % (0-4); LYMPHOCYTE 20 % (20.0-51.0); METAMYELOCYTE 2 % (0-0); NEUTROPHILS 64 % (42.0-75.2); PLATELET ESTIMATE INCREASED (NORMAL)
[2020-08-01 07:50] LABS: ANISOCYTOSIS 1+
[2020-08-01 07:51] LABS: SPHEROCYTE 1+
--- NOTE | 2020-08-01 10:32 | NUR ---
Assessment completed, alert/ partially oriented, he is doing better as far as following commands and agigation is less frequent and less severe, he appears to be improving overall, denies pain, vital signs are stable/ still has some tachycardia at times, TELE was discontinued, he is working with PT/OT and is getting stronger and more functional, lungs CTA/ no resp.difficul, heart Reglar/distal pulses are palpable, appetite is improving and he ate a good breakfast this morning, social work on his case and is working on discharge planning for him, he is still a high fall risk and making sure we keep bed/darian alarms on and keep patient close to the nurses station, will continue to monitor
--- NOTE | 2020-08-01 17:11 | NUR ---
Tobacco Stemmer was contacted by Cindy at [facility] who advised the physician declined patient's referral. ANU contacted Silvia at [facility] who will review today's updates and follow up with ANU. ANU contacted PRESTON Smith about reordering psych evaluation as when patient had a psych evaluation last week, he was agitated and would not participate in evaluation. Dr. Andersen will be in tomorrow. PRESTON Smith is in agreement and will place consult.
--- NOTE | 2020-08-01 19:45 | NUR ---
Patient assessed at this time. Alert and oriented with confusion. Denies having pain and discomfort. Peripheral INT to right forearm. Denies having SOB and dyspnea. LS CTA in upper lobes, diminished in lower. Respirations even and unlabored. HRR-tachycardia. Telemetry in place. Capillary refill less than 3 seconds. Non-tenting skin turgor. BSAx4. Abdomen soft and non-tender. No edema. Continues on alcohol detox protocol. Patient pleasant at this time. High fall risk precautions in place.
[2020-08-02] VITALS (9 sets, daily range): BP systolic 110–145; BP diastolic 58–89; PULSE 72–113; TEMP 97.5–99.5
--- NOTE | 2020-08-02 06:13 | NUR ---
Patient has been cooperative and pleasant this shift. Does try to get self up and gets upset with bed alarm, but does not get aggitated with self assisting patient. Patient more steady tonight compared to last night with use of walker. Patient voices no questions, needs, or concerns at this time. Resting in bed with call light within reach. High fall risk precautions remain in place.
[2020-08-02 07:06] LABS: HEMATOCRIT 33.8 % (42.0-52.0); MEAN CELL VOLUME 101 fl (80.0-100.0); MEAN CORPUSCULAR HEMOGLOBIN 33 pg (27.0-31.0); MEAN CORPUSCULAR HGB CONC 33 g/dl (33.0-37.0); MEAN PLATELET VOLUME 10.1 fl (7.4-10.4); PLATELET COUNT 674 K/mm3 (130-400); RED BLOOD COUNT 3.35 M/mm3 (4.20-5.60); REDCELL DISTRIBUTION WIDTH-CV 14.2 % (11.5-14.5)
[2020-08-02 07:15] LABS: ALBUMIN 3.9 gm/dL (3.5-5.0); BILIRUBIN,TOTAL 0.4 mg/dL (0.0-1.0); CALCIUM 9.8 mg/dL (8.4-10.2); CREATININE, serum 0.55 (0.66-1.25); POTASSIUM 4.5 mmol/L (3.4-5.0); TOTAL PROTEIN 7.7 gm/dL (6.4-8.2)
[2020-08-02 07:31] LABS: BAND 4 % (0-10); EOSINOPHIL 2 % (0-4); LYMPHOCYTE 26 % (20.0-51.0); METAMYELOCYTE 1 % (0-0); NEUTROPHILS 58 % (42.0-75.2); PLATELET ESTIMATE INCREASED (NORMAL)
[2020-08-02 07:33] LABS: SPHEROCYTE 1+
--- NOTE | 2020-08-02 10:55 | NUR ---
Assessment completed, alert/oriented, vital signs stable, denies pain or discomfort, patient is improving significantly both physically and congnitively, he is able to have appropriate converstaion and is following commands, his CIWA scores are much lower and is not requring any PRN meds, we are working on discharge planning for the patient which is proving to be difficult as he is not strong enough to return home alone at this time, social work continues to assist with discharge planning
--- NOTE | 2020-08-02 16:55 | NUR ---
Liner Checker followed up with Silvia at [facility] and they have declined referral. [facility] and [facility] also declined referral. ANU attended clinical rounds with the team and patient will return home, likely tomorrow. Patient will need a front wheeled walker. SW updated patient's mother, Elen on discharge plan and Elen verbalized understanding. Elen states that the apartment complex patient lives in has several people who also drink with patient. Elen did advised patient lives on the third floor so SW collaborated with PT about working on stairs prior to discharge. SW will follow up on FWW tomorrow.
--- NOTE | 2020-08-02 20:03 | NUR ---
Bedside shift report received from MORENA Alvarez. Patient uses call light to use the restroom; He is assisted with one person, gait belt and walker; His gait is unsteady and weak and definietly requires assistance to avoid a fall. He is alert and oriented with mild tachycardia and tremors. He is relatively pleasant at the moment. He expresses he is ready to go home. No edema is present and he does not complain of pain. Lung sounds are clear. No new concerns; Call light in reach and bed alarm set.
--- NOTE | 2020-08-03 03:00 | NUR ---
Patient is currently resting in bed. When awake he has been uncooperative and disrespectful with staff. He has been refusing vital signs for most of the night. HR has remained within normal limits and minimal tremors are observed. Will continue to monitor.
[2020-08-03 03:46] VITALS: BP 121/78; PULSE 87; TEMP 97.6
[2020-08-03 07:51] LABS: ALBUMIN 3.7 gm/dL (3.5-5.0); BILIRUBIN,TOTAL 0.4 mg/dL (0.0-1.0); CALCIUM 9.6 mg/dL (8.4-10.2); CREATININE, serum 0.62 (0.66-1.25); POTASSIUM 4.4 mmol/L (3.4-5.0); TOTAL PROTEIN 7.4 gm/dL (6.4-8.2)
[2020-08-03 07:55] LABS: MEAN CELL VOLUME 103 fl (80.0-100.0); MEAN CORPUSCULAR HEMOGLOBIN 33 pg (27.0-31.0); MEAN CORPUSCULAR HGB CONC 32 g/dl (33.0-37.0); MEAN PLATELET VOLUME 10.3 fl (7.4-10.4); PLATELET COUNT 645 K/mm3 (130-400); RED BLOOD COUNT 3.33 M/mm3 (4.20-5.60); REDCELL DISTRIBUTION WIDTH-CV 14.3 % (11.5-14.5)
[2020-08-03 08:02] LABS: HEMATOCRIT 34.3 % (42.0-52.0)
[2020-08-03 08:30] LABS: BAND 3 % (0-10); BASOPHIL 4 % (0-2); EOSINOPHIL 6 % (0-4); LYMPHOCYTE 26 % (20.0-51.0); NEUTROPHILS 48 % (42.0-75.2)
[2020-08-03 08:31] LABS: PLATELET ESTIMATE INCREASED (NORMAL)
[2020-08-03 08:38] VITALS: BP 139/76; PULSE 106; TEMP 98.8
--- NOTE | 2020-08-03 09:00 | NUR ---
SEE AM SHIFT ASSESSMENT. PATIENT STATES THAT HE IS READY FOR DISCHARGE.
[2020-08-03] MEDS ORDERED: NICODERM C21 MG/PATC TD (09:43)
[2020-08-03] MEDS ORDERED: FOLIC ACID 11 MG/TA1 PO (09:43)
[2020-08-03] MEDS ORDERED: THIAMINE 1100 MG/TAB PO (09:44)
[2020-08-03] MEDS ORDERED: DUO-KAPS1 CAP PO (09:44)
--- NOTE | 2020-08-03 13:24 | NUR ---
PATIENT PULLED OUT OWN IV. SITE LOOKS GOOD. PATIENT UNINTERESTED IN DISCHARGE INSTRUCTIONS.
--- NOTE | 2020-08-03 14:20 | NUR ---
PATIENT PERSONAL BELONGINGS GATHERED. PATIENT TAKEN TO PERSONAL VEHICLE VIA WHEELCHAIR BY MEDICAL STAFF. PATIENT DISCHARGED.
--- NOTE | 2020-08-03 16:55 | NUR ---
Recruiter Coordinator attended clinical rounds with the team and patient to discharge home today. Hospitalist recommended Home Health for at least nursing. ANU contacted Serg at [facility] and faxed referral/orders. Serg advised they will accept patient and keep SW updated on compliance. ANU faxed referral/order for front wheeled walker to [facility]. ANU also contacted Dr. Mcdowell's office at [facility] and patient has an appointment scheduled for 08/10/20 @ 0830. ANU contacted patient's mother, Elen to provide update on discharge plan. ANU then contacted patient's brother, Kiel (ph#[phone]) who is on his way to quill picking machine operator patient. Kiel advised he can quill picking machine operator patient's walker after picking up patient as patient is very anxious to discharge. ANU provided contact information for [facility] to Kiel. ANU updated Chelsi at [facility] that patient and his brother will quill picking machine operator his walker. No additional needs at this time.
== END 2020-08-03 14:20 | disposition home health service (06) | DRG 896 ==
LOC: COL.ER 05:07 → MEDICAL 10:33 → ICU 07-22 12:41 → MEDICAL 07-22 12:41 → ICU 07-22 14:57 → MEDICAL 07-27 18:34
PROVIDERS: Emergency Medicine; Hospitalist; Internal Medicine; Physician Assistant; Student in an Organized Health Care Education/Training Program; ADMIT Family Medicine
DX: F10.239 Alcohol dependence with withdrawal, unspecified (principal); E43 Unspecified severe protein-calorie malnutrition; G93.49 Other encephalopathy; E87.2 Acidosis; Z68.1 Body mass index [BMI] 19.9 or less, adult; M54.9 Dorsalgia, unspecified; D47.3 Essential (hemorrhagic) thrombocythemia; D64.9 Anemia, unspecified; F32.9 Major depressive disorder, single episode, unspecified; F41.9 Anxiety disorder, unspecified; I10 Essential (primary) hypertension; E87.6 Hypokalemia; R41.0 Disorientation, unspecified; J44.9 Chronic obstructive pulmonary disease, unspecified; E83.42 Hypomagnesemia; R53.81 Other malaise; R00.0 Tachycardia, unspecified; G89.29 Other chronic pain; F17.210 Nicotine dependence, cigarettes, uncomplicated; Z20.828 Contact with and (suspected) exposure to other viral communicable diseases
CPT/HCPCS: 99232-AI; 99233-AI; 99239; G0378; J0360; J1630; J1650; J2060; J2270; J2405; J2930; J3411; J3480; J3486; J7030

== ENCOUNTER 2020-09-27 08:29 | Emergency (ER) | payer MEDICAID ==
[~2020-09-27] VITALS: Ht 177.8 cm; Wt 65.9 kg
[~2020-09-27 08:29] MED LIST changes: +CELEXA 20MG20 MG/TAB PO; +DUO-KAPS1 CAP PO; +FOLIC ACID 11 MG/TA1 PO; +NICODERM C21 MG/PATC TD; +PROVENTIL0.09 MG/A1 IH; +RT ADVAIR 228 DISKUS IH; +THIAMINE 1100 MG/TAB PO
[2020-09-27 08:36] VITALS: TEMP 97.2
[2020-09-27 09:09] LABS: COLLECTION METHOD CLEAN CATCH
[2020-09-27 09:13] LABS: BASO # 0.1 (0.0-0.2); BASO % 1.6 % (0.0-2.0); EOS # 0.2 (0.0-0.7); EOS % 1.8 % (0-4.0); GRAN # 4.6 (1.4-6.5); GRAN % 55.8 % (42.2-75.2); HEMATOCRIT 41.6 % (42.0-52.0); HEMOGLOBIN 13.7 g/dl (13.5-18.0); LYMPH # 2.7 (1.2-3.4); LYMPH % 32.1 % (20.0-51.0); MEAN CELL VOLUME 97 fl (80.0-100.0); MEAN CORPUSCULAR HEMOGLOBIN 32 pg (27.0-31.0); MEAN CORPUSCULAR HGB CONC 33 g/dl (33.0-37.0); MEAN PLATELET VOLUME 9.3 fl (7.4-10.4); MONO # 0.7 (0.1-0.6); MONO % 8.3 % (1.7-9.3); PLATELET COUNT 285 K/mm3 (130-400); RED BLOOD COUNT 4.29 M/mm3 (4.20-5.60); REDCELL DISTRIBUTION WIDTH-CV 13.4 % (11.5-14.5)
[2020-09-27 09:16] LABS: PH 7 (5-8); SQUAMOUS EPITHELIAL None Seen /hpf; URINE APPEARANCE Clear; URINE BACTERIA None Seen /hpf; URINE BILIRUBIN Negative (NEGATIVE); URINE BLOOD Negative (NEGATIVE); URINE COLOR Straw; URINE GLUCOSE Negative (NEGATIVE); URINE KETONE Negative (NEGATIVE); URINE LEUKOCYTE ESTERASE Negative (NEGATIVE); URINE NITRATE Negative (NEGATIVE); URINE PROTEIN(semi-quant) Negative (NEGATIVE); URINE RBC None Seen /hpf; URINE UROBILINOGEN Negative (NEGATIVE)
[2020-09-27 09:23] LABS: ALANINE AMINOTRANSFERASE 37 U/L (4-49); ALBUMIN 4.3 gm/dL (3.5-5.0); ALCOHOL(ethanol),MEDICAL 292 mg/dL; ALKALINE PHOSPHATASE 63 U/L (50-136); ANION GAP 11 mmol/L (7-16); AST,SGOT 48 U/L (15-37); BILIRUBIN,TOTAL < 0.1 mg/dL (0.0-1.0); BLOOD UREA NITROGEN 7 mg/dL (9-20); CARBON DIOXIDE 26 mmol/L (22-30); CHLORIDE 101 mmol/L (98-107); CREATININE, serum 0.48 (0.66-1.25); GLUCOSE 87 mg/dL (74-106); POTASSIUM 4.4 mmol/L (3.4-5.0); SODIUM 138 mmol/L (137-145); TOTAL PROTEIN 8.4 gm/dL (6.4-8.2)
[2020-09-27 09:32] LABS: TRICYCLIC ANTIDEPRESS URINE NEGATIVE
--- NOTE | 2020-09-27 09:40 | NUR ---
ventilation worker met with patient and provided social detox information. [facility] were both full at this time. [facility] has an opening and worker encouraged patient to call, at this time, for the intake and to secure a bed. Patient states he is willing to call and desires detox. Dr Trejo's office calls social work staff and advises that she is not firing patient, however, could not see him today as he was intoxicated.
--- NOTE | 2020-09-27 10:14 | NUR ---
Patient was found drinking a 40 oz beer and had another one in his belongings. Staff typed up detox facilities with phone numbers in his disharge paperwork. Patient had not called [facility] for an intake to be admitted today, at this time. Staff is assisting patient with a taxi ride home. Worker contacted Mickie at Dr Garibay's office and advised of the above information.
[2020-09-27 10:31] VITALS: BP 131/81; PULSE 78
== END 2020-09-27 11:15 | disposition home or self-care (01) ==
LOC: COL.ER 08:29
PROVIDERS: Family Medicine
DX: F10.229 Alcohol dependence with intoxication, unspecified (principal); F10.239 Alcohol dependence with withdrawal, unspecified; R06.02 Shortness of breath; R05 Cough; F17.210 Nicotine dependence, cigarettes, uncomplicated
CPT/HCPCS: J2405; J3411; J7030

== ENCOUNTER 2020-10-28 14:23 | Emergency (ER) | payer MEDICAID ==
[~2020-10-28] VITALS: Ht 177.8 cm; Wt 63.6 kg
[2020-10-28 14:28] VITALS: TEMP 98.4
[2020-10-28 15:17] LABS: COLLECTION METHOD CLEAN CATCH
[2020-10-28 15:22] LABS: BASO # 0.1 (0.0-0.2); BASO % 2.4 % (0.0-2.0); EOS # 0.1 (0.0-0.7); EOS % 1.2 % (0-4.0); GRAN # 2.4 (1.4-6.5); GRAN % 47.4 % (42.2-75.2); HEMATOCRIT 37.5 % (42.0-52.0); HEMOGLOBIN 12.7 g/dl (13.5-18.0); LYMPH # 1.8 (1.2-3.4); LYMPH % 35.7 % (20.0-51.0); MEAN CELL VOLUME 95 fl (80.0-100.0); MEAN CORPUSCULAR HEMOGLOBIN 32 pg (27.0-31.0); MEAN CORPUSCULAR HGB CONC 34 g/dl (33.0-37.0); MEAN PLATELET VOLUME 9.6 fl (7.4-10.4); MONO # 0.6 (0.1-0.6); MONO % 12.9 % (1.7-9.3); PLATELET COUNT 175 K/mm3 (130-400); RED BLOOD COUNT 3.93 M/mm3 (4.20-5.60); REDCELL DISTRIBUTION WIDTH-CV 16.4 % (11.5-14.5)
[2020-10-28 15:23] LABS: PH 7 (5-8); SQUAMOUS EPITHELIAL None Seen /hpf; URINE APPEARANCE Clear; URINE BACTERIA None Seen /hpf; URINE BILIRUBIN Negative (NEGATIVE); URINE BLOOD Negative (NEGATIVE); URINE COLOR Yellow; URINE GLUCOSE Negative (NEGATIVE); URINE KETONE Negative (NEGATIVE); URINE LEUKOCYTE ESTERASE Negative (NEGATIVE); URINE NITRATE Negative (NEGATIVE); URINE PROTEIN(semi-quant) Negative (NEGATIVE); URINE RBC None Seen /hpf; URINE UROBILINOGEN Negative (NEGATIVE)
[2020-10-28 15:31] LABS: ALBUMIN 4.5 gm/dL (3.5-5.0); BILIRUBIN,TOTAL 0.4 mg/dL (0.0-1.0); CALCIUM 8.9 mg/dL (8.4-10.2); CREATININE, serum 0.49 (0.66-1.25); POTASSIUM 4.3 mmol/L (3.4-5.0); TOTAL PROTEIN 8.6 gm/dL (6.4-8.2)
[2020-10-28 17:20] VITALS: BP 127/64; PULSE 94
== END 2020-10-28 17:25 | disposition home or self-care (01) ==
LOC: COL.ER 14:23
PROVIDERS: Physician Assistant
DX: S42.032A Displaced fracture of lateral end of left clavicle, initial encounter for closed fracture (principal); S20.212A Contusion of left front wall of thorax, initial encounter; F10.10 Alcohol abuse, uncomplicated; J44.9 Chronic obstructive pulmonary disease, unspecified; F17.210 Nicotine dependence, cigarettes, uncomplicated; Z79.51 Long term (current) use of inhaled steroids; Y90.8 Blood alcohol level of 240 mg/100 ml or more; W01.198A Fall on same level from slipping, tripping and stumbling with subsequent striking against other object, initial encounter
CPT/HCPCS: J7030

== ENCOUNTER 2021-05-16 14:13 | Emergency (ER) | payer MEDICAID ==
[~2021-05-16] VITALS: Ht 177.8 cm; Wt 59.1 kg
[2021-05-16 14:38] LABS: HEMATOCRIT 38.6 % (42.0-52.0); MEAN CELL VOLUME 102 fl (80.0-100.0); MEAN CORPUSCULAR HEMOGLOBIN 35 pg (27.0-31.0); MEAN CORPUSCULAR HGB CONC 34 g/dl (33.0-37.0); PLATELET COUNT 191 K/mm3 (130-400); RED BLOOD COUNT 3.77 M/mm3 (4.20-5.60); REDCELL DISTRIBUTION WIDTH-CV 14.9 % (11.5-14.5)
[2021-05-16 14:53] LABS: ALBUMIN 4.2 gm/dL (3.4-4.8); BILIRUBIN,TOTAL 0.2 mg/dL (0.2-1.2); CALCIUM 9.4 mg/dL (8.4-10.2); CREATININE, serum 0.67 mg/dL (0.72-1.25); POTASSIUM 3.7 mmol/L (3.5-4.5); TOTAL PROTEIN 8.2 gm/dL (6.2-8.1)
[2021-05-16 15:07] LABS: BAND 1 % (0-10); BASOPHIL 1 % (0-2); LYMPHOCYTE 40 % (20.0-51.0); METAMYELOCYTE 2 % (0-0); NEUTROPHILS 44 % (42.0-75.2)
[2021-05-16 15:08] LABS: TARGET CELLS 1+
[2021-05-16 18:15] VITALS: BP 164/89; PULSE 88; TEMP 98
== END 2021-05-16 18:25 | disposition short-term general hospital (02) ==
LOC: COL.ER 14:13
PROVIDERS: Emergency Medicine
DX: S12.100A Unspecified displaced fracture of second cervical vertebra, initial encounter for closed fracture (principal); S02.609A Fracture of mandible, unspecified, initial encounter for closed fracture; F10.10 Alcohol abuse, uncomplicated; F41.9 Anxiety disorder, unspecified; F32.A Depression, unspecified; F17.210 Nicotine dependence, cigarettes, uncomplicated; Y90.8 Blood alcohol level of 240 mg/100 ml or more; Z79.899 Other long term (current) drug therapy; W10.8XXA Fall (on) (from) other stairs and steps, initial encounter; Y92.091 Bathroom in other non-institutional residence as the place of occurrence of the external cause
CPT/HCPCS: J3010